=== PATIENT | female | born 1955 | race Caucasian/White ===

== ENCOUNTER 2022-12-22 20:01 | Outpatient (REF) | payer BC, SELFPAY ==
[2022-12-27 11:13] LABS: Age Gdln ACOG Testing Note (.); HPV Aptima Negative (Negative); IGP, Aptima HPV, rfx 16/18,45 Note (.)
== END 2022-12-22 20:02 | disposition home or self-care (01) ==
LOC: LAB 20:01
PROVIDERS: Visit Provider Physician Assistant
DX: Z12.4 Encounter for screening for malignant neoplasm of cervix (principal); Z11.51 Encounter for screening for human papillomavirus (HPV)
CPT/HCPCS: 87624; G0145